=== PATIENT | male | born 1960 | race Caucasian/White ===

== ENCOUNTER 2022-06-17 17:35 | Emergency (ER) | payer BC, SELFPAY ==
--- NOTE | ~2022-06-17 | CT_ITS ---
EXAMINATION: CT abdomen pelvis wo con DATE: 06/17/2022 19:18 INDICATION: Flank pain. Hematuria. TECHNIQUE: Computed tomography (CT) of the abdomen and pelvis was performed without intravenous contr ast. Automated exposure control and iterative reconstruction technique were employed. The dose-length product was 385.77 mGy-cm. COMPARISON: None. FINDINGS: The visualized portions of the lung bases demonstrate minimal atelectasis. No pleural effus ion. The heart size is normal. No pericardial effusion. There is ectasia of ascending aorta measuring 4.4 cm. The liver, gallbladder, spleen, pancreas, adrenal glands, and right kidney are normal. There is a 2.5 cm cyst in left kidney. There is no urolithiasis. There is diffuse bladder wall thickening, likely secondary to chronic outlet obstruction from the severely enlarged prostate. There are no dil ated loops of bowel. The appendix is normal. There are no pathologically enlarged lymph nodes. There is no free intraperitoneal fluid. There are old healed fractures of the bilateral superior and inferi or pubic rami with a reconstruction plate with screws. There is screw fixation of right sacroiliac dillon int. There is severe degenerative disc disease at L2-L3. IMPRESSION: 1. No urolithiasis. Reviewed, dictated and finalized at location A. IMPRESSION: 1. No urolithiasis.
[2022-06-17 17:48] VITALS: BP 118/72; PULSE 97; RESP 18; TEMP 38.5; O2SAT 97
[2022-06-17 18:13] LABS: Hematocrit 45.2 % (42.0-52.0); Hemoglobin 15.8 g/dL (14.0-18.0); Mean Corpuscular Hemoglobin 31.3 pg (26-34); Mean Corpuscular Volume 89.7 fl (80-100); Mean Platelet Volume 9.4 fl (7.4-10.4); Platelet Count Result 152 k/mm3 (150-375); Red Blood Count 5.04 M/mm3 (4.6-6.20); Red Cell Distribution Width 13.1 % (11.5-14.5)
[2022-06-17 18:15] LABS: Appearance Urine Clear (Clear); Bilirubin Urine Negative (Negative); Blood Urine 1+ (Negative); Color Urine Yellow (Yellow); Glucose Urine UA Negative (Negative); Ketones Urine 2+ mg/dL (Negative); Leukocyte Esterase Ur 2+ LEU/UL (Negative); Nitrate Urine Negative (Negative); Protein Urine 1+ mg/dL (Negative); Urobilinogen Urine 0.2 mg/dL (<2.0); pH Urine 7.5 (5.0-9.0)
[2022-06-17 18:21] LABS: Add Urine Microscopic? YES; Bacteria Urine Trace /hpf; Mucus Urine Rare /lpf; WBC Urine 51-75 /hpf
[2022-06-17 18:29] LABS: Alanine Aminotransferase 20 U/L (6-50); Albumin Level 4.1 g/dL (3.5-5.1); Alkaline Phosphatase 95 U/L (38-126); Anion Gap 10 mmol/L (8-16); Bilirubin,Total 1.7 mg/dL (0.2-1.3); Blood Urea Nitrogen 18 mg/dL (9-20); Calcium 8.9 mg/dL (8.4-10.2); Carbon Dioxide 24 mmol/L (22-30); Chloride 101 mmol/L (98-107); Estimated CRCL calculation 68 ml/min; Estimated Glomerular Filt Rate > 60; Glucose 114 mg/dL (65-110); Potassium 4.2 mmol/L (3.4-5.0); Sodium 135 mmol/L (137-145)
[2022-06-17 18:36] LABS: Band Neutrophils Percent 16 % (0-6); Lymphocytes Absolute Manual 0.56 K/mm3 (1.1-4.5); Monocytes Absolute Manual 0.98 K/mm3 (0.1-0.90); Monocytes Percent Manual 7 % (3-9); Neutrophils Absolute Manual 12.46 K/mm3 (1.3-6.7); Neutrophils Percent Manual 73 % (46-73); Total Cells Counted 100
[2022-06-17 18:37] LABS: Platelet Estimate Adequate (Adequate)
--- NOTE | 2022-06-17 18:43 | PC.NURSE ---
took own tylenol in room at 1840, 1gm
--- NOTE | 2022-06-17 18:44 | PC.NURSE ---
reports diagnosed with uti today and started on bactrim
[2022-06-17 19:02] VITALS: BP 133/77; PULSE 70; RESP 16; TEMP 36.8; O2SAT 100
[2022-06-17 19:22] LABS: Aspartate Amino Transferase 62 U/L (17-59)
[2022-06-17] MEDS: Please add drug allergy info to patient profile. 1 EACH XX (19:24)
[2022-06-17 19:45] LABS: Lactic Acid Reflex 0.9 mmol/L (0.7-2.0)
[2022-06-17 20:00] VITALS: BP 116/78; PULSE 110; RESP 18; TEMP 37.6; O2SAT 100
--- NOTE | 2022-06-17 20:47 | ED.FEVER ---
HPI - Fever General Chief Complaint: Fever Stated Complaint: fever, UTI Time Seen by Provider: 06/17/22 18:54 Source: patient and family Mode of arrival: ambulatory Limitations: no limitations History of Present Illness HPI Narrative: 61-year-old otherwise healthy here with complaints of fever on and off for past 4 days started having body aches since yesterday. Patient states that he went to urgent care had a urine analysis done which showed a UTI and was started on Bactrim however he still continues to have fever he was sent here for further work-up. Patient patient states that he has dysuria. Denies any blood however he states that his urine was orange in color earlier this morning and it is clear now. No previous history of kidney stones or kidney infections MD elicited complaint: fever Onset (ago): day(s) (4) Relieving factors: acetaminophen Associated symptoms: denies other symptoms Treatments prior to arrival fever: acetaminophen and antibiotics (Bactrim) Related Data Allergies Allergy/AdvReac Type Severity Reaction Status Date / Time No Known Allergies Allergy Verified 06/17/22 19:24 Review of Systems Review of Systems: All systems reviewed & are unremarkable except as noted in HPI and below Constitutional: Constitutional: Reports no additional constitutional complaints Eyes: Eyes: Reports no additional eye complaints Cardiovascular: Cardiovascular: Reports no additional cardiovascular complaints Respiratory: Respiratory: Reports no additional respiratory complaints Gastrointestinal: Gastrointestinal: Reports no additional gastrointestinal complaints Genitourinary: Genitourinary: Reports as per HPI Musculoskeletal: Musculoskeletal: Reports no additional musculoskeletal complaints Neurologic: Reports system reviewed and no additional complaints, except as documented Psychiatric: Psychiatric: Reports no additional psychiatric complaints Endocrine: Endocrine: Reports no additional endocrine complaints Hematologic/Lymphatic: Hematologic/Lymphatic: Reports no additional hematologic/lymphatic complaints Allergic/Immunologic: Allergic/Immunologic: Reports no additional allergic/immunologic complaints Exam Narrative: GENERAL: Well-appearing, well-nourished, and in no acute distress. HEAD: Normocephalic, atraumatic. EYES: PERRLA and EOMI. NECK: Supple. CHEST: Clear to auscultation. No respiratory distress. HEART: Regular rate and rhythm. No murmur heard. Normal peripheral pulses. ABDOMEN: Soft, nontender, nondistended, normal active bowel sounds. EXTREMITIES: Normal range of motion. No edema. SKIN: Warm, dry, no rash. NEURO: No focal deficits. Alert and oriented x3. PSYCH: Normal mood and affect. Course Course Emergency Course: Patient was given a liter of normal saline, IV Rocephin after getting blood cultures. CT of the abdomen and pelvis done which showed no evidence of kidney stones. I did inform patient and his about his lab work and CT findings. Advised him to continue Bactrim as given today. Vital Signs Vital signs: Vital Signs Temperature 38.5 C H 06/17/22 17:48 Pulse Rate 97 06/17/22 17:48 Respiratory Rate 18 06/17/22 17:48 Blood Pressure 118/72 06/17/22 17:48 Pulse Oximetry 97 06/17/22 17:48 Oxygen Delivery Room Air 06/17/22 17:48 Temperature 37.6 C H 06/17/22 20:00 Pulse Rate 110 H 06/17/22 20:00 Respiratory Rate 18 06/17/22 20:00 Blood Pressure 116/78 06/17/22 20:00 Pulse Oximetry 100 06/17/22 20:00 Oxygen Delivery Room Air 06/17/22 17:48 MDM - Fever Differential Diagnosis Differential diagnosis: Likely fever of unknown origin, viral infection and other (UTI) Medical Records Attestation: I reviewed the patient's medical records. Lab Data Attestation: I reviewed the patient's lab results. Result diagrams: 06/17/22 18:00 06/17/22 18:00 Labs: Lab Results 06/17/22 06/17/22 06/17/22 Range/Units 18
== END 2022-06-17 21:04 | disposition home or self-care (01) ==
PROVIDERS: Emergency Provider Family Medicine
DX: N39.0 Urinary tract infection, site not specified (principal)
CPT/HCPCS: 36415; 74176; 80053; 81001; 83605; 85025; 87040; 87077; 87086; 87186; 96365; 99284; J0696